=== PATIENT | female | born 1960 | race Caucasian/White ===

== ENCOUNTER → 2016-11-14 | Outpatient (CLI) | payer OTHER ==
[2013-07-20 11:10] VITALS: BP 162/96
[~2016-11-14] MED LIST: CALC500T54 PO; CYCL10TA2 PO; LEVO50TA5 PO; MULT-246 PO; NAPR500T PO
[2016-11-14 08:04] LABS: BASO # 0.1 x10^3/uL (0.0-0.2); BASO % 1 % (0-3); EOS % 3 % (0-3); HEMATOCRIT 43.2 % (36.0-47.0); HEMOGLOBIN 14.7 g/dL (12.0-15.5); LYMPH # 2.6 x10^3/uL (1.0-4.8); LYMPH % 32 % (24-48); MEAN CORPUSCULAR HEMOGLOBIN 31 pg (25-35); MEAN CORPUSCULAR HGB CONC 34 g/dL (31-37); MEAN CORPUSCULAR VOLUME 90 fL (79-100); MONO % 6 % (0-9); NEUT % 58 % (31-73); PLATELET COUNT 215 x10^3/uL (140-400); RED BLOOD COUNT 4.81 x10^6/uL (3.50-5.40); RED CELL DISTRIBUTION WIDTH 13.2 % (11.5-14.5)
[2016-11-14 08:31] LABS: ALBUMIN 4.1 g/dL (3.4-5.0); ALBUMIN/GLOBULIN RATIO 1.1 (1.0-1.7); CALCIUM 9.5 mg/dL (8.5-10.1); CREATININE 1.1 mg/dL (0.6-1.0); TOTAL BILIRUBIN 0.5 mg/dL (0.2-1.0); TOTAL PROTEIN 7.7 g/dL (6.4-8.2)
[2016-11-14 08:36] LABS: CHOLESTEROL/HDL RATIO 3.5
== END | disposition home or self-care (01) ==
LOC: LAB 07:32
PROVIDERS: ATTEND Nurse Practitioner Family
DX: Z00.01 Encounter for general adult medical examination with abnormal findings (principal); Z13.220 Encounter for screening for lipoid disorders; E03.9 Hypothyroidism, unspecified; R53.83 Other fatigue
CPT/HCPCS: 36415; 80053; 80061; 84443; 84480; 85027; 86617; 86618

== ENCOUNTER → 2017-02-17 | Outpatient (CLI) | payer OTHER ==
[2017-02-06 13:30] VITALS: BP 163/97
--- NOTE | 2017-02-17 12:17 | KCIC ---
MR of the left knee Indication: Left knee pain after hearing a pop while walking 10 days ago. Instability. Technique: The standard multiplanar sequences are obtained. Findings: Medial meniscus: Degenerative tear at the posterior root. There is medial subluxation of the meniscus. Lateral meniscus: Signal within the anterior horn, without definite tear. Anterior cruciate ligament: Intact Posterior cruciate ligament: Intact Medial collateral ligament: Intact. Iliotibial band: Intact. Posterolateral structures: Fibular collateral ligament, biceps tendon and popliteus tendon are intact. Extensor mechanism: Intact. Fluid: Small joint effusion. Articular cartilage -patellofemoral joint: Severe chondromalacia with small subchondral cysts. -medial compartment: Moderate to severe chondromalacia. -lateral compartment: Mild chondromalacia. Bones: No significant lesion or acute fracture. Soft tissue: Tiny Eubanks's cyst. Impression: 1. Medial meniscal tear. 2. Primary osteoarthritis. Electronically signed by: Marcos Shelton MD (02/17/2017 12:14 PM) [facility]-KC[facility]2
== END | disposition home or self-care (01) ==
LOC: KCIC MRI 10:44
PROVIDERS: ATTEND Orthopaedic Surgery Sports Medicine
DX: S83.207A Unspecified tear of unspecified meniscus, current injury, left knee, initial encounter (principal); M17.12 Unilateral primary osteoarthritis, left knee
CPT/HCPCS: 73721

== ENCOUNTER → 2017-03-10 | Outpatient (CLI) | payer OTHER ==
[2017-02-06 13:30] VITALS: BP 163/97
[~2017-03-10] MED LIST changes: +ACYC800T PO; +NAPR-683 PO; -NAPR500T PO
--- NOTE | 2017-03-10 20:49 | PAIN ---
DATE OF SERVICE: 03/10/2017 INITIAL CONSULTATION FOR PAIN CLINIC CHIEF COMPLAINT: Left knee pain. HISTORY OF PRESENT ILLNESS: This is a 56-year-old female who presents with history of pain in the left knee with walking, standing for about 2 months now. The patient reports it was not a result of any specific injury or accident she is aware of, but she felt a pop behind her left knee and then could not walk because of the pain. The patient reports the pain has been much worse. She has seen her orthopedic surgeon regarding and has had both medial and lateral inferior collateral ligament bursa injected without significant improvement. The patient reports neither of these had helped. She did have some x-rays, plain films of her knees, but no MRI, showing no bony abnormalities with mild patellofemoral degenerative change on the left with similar findings on the right knee as well. The patient reports she thought she had a Eubanks cyst since the pain was significant enough to her in the posterior aspect of the knee and again the right knee x-ray shows moderate joint space narrowing without spurring of the medial tibiofemoral joint compartment. No acute fractures or dislocations as well, but significant pain with walking, especially climbing stairs, putting all her weight on her left leg and her right leg and she is having to take 2 feet on each step at a time. The patient reports again much worse on the left side, worse going downstairs with weightbearing as well on the left. The patient describes the pain as sharp, stabbing, throbbing, shooting. Again, no pain radiating into the superior leg, but into the inferior aspect of the medial calf and similar is in the medial part of the foot on the left side as well. The patient rates her disability rating from 0-10, 10 being the worst; a 6 with family, home responsibilities; 8 with recreation, social activity, occupation and sexual behavior; 4 with self care and 4 with life support activities. She reports it awakens her from sleep about 2-3 times at night if she lies on her left side. She has not had any bowel or bladder control issues, but she is using a cane to walk when she is ambulating in her left hand. The patient not tried any other physical therapies at this time. She has been trying to do some stretching and walking on her own, but it has been significantly difficult to do so. She is only taking Aleve currently, which is not helping. PAST MEDICAL HISTORY: Significant for arthritis, recent shingles outbreak in the back and left hip. PREVIOUS SURGERY: Includes hysterectomy, right knee scope in 2010, right carpal tunnel repair in 2004. CURRENT MEDICATIONS: Include multivitamins, calcium, cyclobenzaprine, levothyroxine, naproxen, acyclovir and Advil glok-yne-ydnfelx. FAMILY HISTORY: Significant for arthritis. SOCIAL HISTORY: The patient does not smoke. Drinks alcohol very rarely. 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 REVIEW OF SYSTEMS: Positive for those items mentioned in history of present illness. All systems reviewed and otherwise negative. It is complete, full and well documented on the patient's chart. PHYSICAL EXAMINATION: VITAL SIGNS: Today, the patient's blood pressure is 154/90, pulse 96, respirations 18, temperature 98.2 degrees Fahrenheit, height is 5 feet 2 inches, weight is 227 pounds. GENERAL: The patient is awake, alert, oriented, appropriate, has a very pleasant demeanor. HEENT: Shows normocephalic, atraumatic. Extraocular movements are intact, symmetrical. Oral cavity shows mucous membranes moist and pink. Dentition is intact. NECK: Shows anterior throat supple without palpable lymphadenopathy noted. Swallow reflex symmetrical. CHEST: Shows normal with inspection. Breath sounds are clear to auscultation bilaterally. HEART: Shows S1, S2 clear. No murmurs auscultated. ABDOMEN: Obese, soft, nontender, nondistended. No palpable organomegaly is noted. No rebound or guarding demonstrated. MUSCULOSKELETAL: Back shows spine grossly in the midline, normal appearing thoracic kyphosis and some mild flattening of lumbar lordotic curvature. The patient has full rotational motion of the cervical spine both laterally as well as extension and flexion as well as lumbar spine both laterally and extension and flexion without pain reported. The patient's lower extremities show deep tendon reflexes at 1+ in the patellar and tendo-calcaneus tendons on the left and 2+ on the right. Motor exam is approximately 4 on a scale of 5 on the left and 5/5 on the right. The patient's peripheral pulses are 2+ posterior tibial and dorsalis pedis pulses. No peripheral edema is noted. No clubbing, no cyanosis. The patient shows good passive motion of the knee joints bilaterally on the left and the right. With weightbearing now, she has significant pain in the medial component, mostly of the left knee. With walking, she has a significant antalgic gait and limping, favoring the left lower extremity significantly and again using a cane in her right hand. IMPRESSION: 1. This is a 56-year-old female with approximately 2-month history of increasing pain, left knee, without any specific injury. 2. X-rays of the knees as noted. 3. History of arthritis. PLAN: Options were discussed with the patient including conservative medical management, physical therapy, interventional techniques. We will start with a Medrol Dosepak as well as hydrocodone for the severe pain and help with the pain at night with trying to sleep. The patient was given instruction as well as side effects to aware with each of these, also have the patient return in about 1 week for a left intraarticular knee joint injection as she has only had bursa injections at this time without significant improvement and her pain seems to be increasing. If not significantly improved, we did discuss possibility of MRI scan of the knee after that. The patient understands and wished to proceed. Will follow up as scheduled. YOVANNY RAMIREZ MD DR: ABBY/dick JOB#: [id number] / [id number]
== END | disposition home or self-care (01) ==
LOC: PNCL 10:14
PROVIDERS: ATTEND Anesthesiology
DX: M25.562 Pain in left knee (principal); Z90.710 Acquired absence of both cervix and uterus
CPT/HCPCS: 99214

== ENCOUNTER → 2017-03-18 | Outpatient (CLI) | payer OTHER ==
[2017-02-06 13:30] VITALS: BP 163/97
[~2017-03-18] MED LIST changes: +BUPIVACAINE MPF 0.25% 10 ML VIAL. ONE; +IOHEXOL 180 MG/ML 10 ML VIAL. ONE; +methylPREDNISolone ACETATE 80 MG/ML VIAL. ONE
--- NOTE | 2017-03-18 21:51 | PAIN ---
DATE OF SERVICE: 03/18/2017 DIAGNOSIS: Left knee joint pain with primary osteoarthritis, left knee. HISTORY OF PRESENT ILLNESS: The patient is a 56-year-old female who returns for a followup status post initial evaluation and scheduled for left knee joint injection today. The patient reports significant pain in the left knee, mostly with walking, standing, changing positions, bending down, stooping or climbing stairs, especially when she put all of her weight on her left leg such as steps or stairs or curbs with standing on her left leg. The patient reports pain as a 9 on a scale of 10 at its worst, 6 on average, 4 at its least and is a 5 today. The patient reports it is stabbing, aching, sharp, dull, tight, again worse with standing, walking, ambulation and weightbearing. The patient reports no new motor or sensory deficits, no new changes. The patient reports it awakens her from sleep about every 6 hours or so. She can usually reposition and is usually when she is lying on her left side. PHYSICAL EXAMINATION: VITAL SIGNS: Today, the patient's blood pressure is 182/106, pulse 90, respirations 18, temperature 98.3 degrees Fahrenheit. Weight is 229 pounds. GENERAL: The patient is awake, alert, oriented, appropriate, very pleasant demeanor. HEENT: Shows normocephalic, atraumatic. Extraocular movements are intact, symmetrical. Oral cavity shows mucous membranes are moist and pink. Dentition is intact. NECK: Shows anterior throat supple without palpable lymphadenopathy noted. Swallow reflex is symmetrical. CHEST: Shows normal with inspection. Breath sounds are clear to auscultation bilaterally. HEART: Shows S1, S2 clear. No murmurs auscultated. ABDOMEN: Soft, nontender, nondistended. MUSCULOSKELETAL: The patient's lower extremities show deep tendon reflexes at 2+ in the patellar tendons. Motor exam is strong with approximately 4 on a scale 5 with left dorsiflexion, extension, 5/5 on the right. The patient's left knee shows some moderate tenderness with palpation in the medial compartment from the medial aspect of the patella as well as the medial collateral ligaments. Good hinge motion, good range of motion both passively and actively. PLAN: Options were discussed with the patient. The patient's old chart was reviewed as her current medication regimen and updated. Current review of systems updated today as well. We will proceed with a left intraarticular knee joint injection with fluoroscopic guidance. Risks were again discussed including, but not limited to bleeding, infection, possibility of intravascular injection sequelae, spread of local anesthetic and numbness, side effects of steroid medication, exposure to fluoroscopy and poor results regarding pain control. The patient understands and wished to proceed. The patient will return to the clinic in approximately 2 weeks for a followup, was counseled to return appointment, activity level and side effects to be aware of. DIAGNOSIS: Primary osteoarthritis, left knee joint, with left knee joint pain. PROCEDURE: Left intraarticular knee joint injection using C-arm fluoroscopic guidance under sterile prep and drape using local anesthetic. MEDICATIONS INJECTED: A total of 3 mL of 0.25% bupivacaine and 80 mg of Depo-Medrol and 2 mL of Isovue for contrast. CONDITION AT DISCHARGE: Stable. The patient tolerated the procedure well, had no complications. YOVANNY RAMIREZ MD DR: ABBY/dick JOB#: [id number] / [id number]
== END | disposition home or self-care (01) ==
LOC: PNCL 10:13
PROVIDERS: ATTEND Anesthesiology
DX: M17.12 Unilateral primary osteoarthritis, left knee (principal); Z88.0 Allergy status to penicillin; Z88.1 Allergy status to other antibiotic agents; Z88.2 Allergy status to sulfonamides; Z88.8 Allergy status to other drugs, medicaments and biological substances; Z90.710 Acquired absence of both cervix and uterus; E03.9 Hypothyroidism, unspecified
CPT/HCPCS: 20610; 77002; J1040; J3490

== ENCOUNTER → 2017-04-01 | Outpatient (CLI) | payer OTHER ==
[~2017-04-01] MED LIST changes: -ACYC800T PO; +BUPIVACAINE MPF 0.25% 10 ML VIAL.; -BUPIVACAINE MPF 0.25% 10 ML VIAL. ONE; -CALC500T54 PO; -CYCL10TA2 PO; +IOHEXOL 180 MG/ML 10 ML VIAL.; -IOHEXOL 180 MG/ML 10 ML VIAL. ONE; -LEVO50TA5 PO; -MULT-246 PO; -NAPR-683 PO; +methylPREDNISolone ACETATE 80 MG/ML VIAL.; -methylPREDNISolone ACETATE 80 MG/ML VIAL. ONE
== END | disposition home or self-care (01) ==
LOC: PNCL 09:36
DX: M17.12 Unilateral primary osteoarthritis, left knee (principal); E03.9 Hypothyroidism, unspecified; Z86.69 Personal history of other diseases of the nervous system and sense organs; Z90.710 Acquired absence of both cervix and uterus; Z87.39 Personal history of other diseases of the musculoskeletal system and connective tissue; Z86.39 Personal history of other endocrine, nutritional and metabolic disease; Z88.0 Allergy status to penicillin; Z88.2 Allergy status to sulfonamides; Z88.8 Allergy status to other drugs, medicaments and biological substances
CPT/HCPCS: 20610; 77002; J1040; J3490

== ENCOUNTER → 2017-04-15 | Outpatient (CLI) | payer OTHER | END | disposition home or self-care (01) | LOC: PNCL 09:29 | DX: M17.12 Unilateral primary osteoarthritis, left knee (principal); E03.9 Hypothyroidism, unspecified; Z86.69 Personal history of other diseases of the nervous system and sense organs; Z90.710 Acquired absence of both cervix and uterus; Z87.39 Personal history of other diseases of the musculoskeletal system and connective tissue; Z88.0 Allergy status to penicillin; Z88.2 Allergy status to sulfonamides | CPT/HCPCS: 20610; 77002; J1040; J3490 ==

== ENCOUNTER → 2017-04-29 | Outpatient (CLI) | payer OTHER ==
[~2017-04-29] MED LIST changes: -BUPIVACAINE MPF 0.25% 10 ML VIAL.; -methylPREDNISolone ACETATE 80 MG/ML VIAL.
== END | disposition home or self-care (01) ==
LOC: PNCL 08:53
DX: M17.12 Unilateral primary osteoarthritis, left knee (principal); Z86.69 Personal history of other diseases of the nervous system and sense organs; Z90.710 Acquired absence of both cervix and uterus; Z87.39 Personal history of other diseases of the musculoskeletal system and connective tissue; E03.9 Hypothyroidism, unspecified; Z86.39 Personal history of other endocrine, nutritional and metabolic disease; Z88.0 Allergy status to penicillin; Z88.2 Allergy status to sulfonamides
CPT/HCPCS: 20610; 77002

== ENCOUNTER → 2017-05-07 | Outpatient (CLI) | payer OTHER ==
[~2017-05-07] MED LIST changes: +HYLAN G-F 20 16 MG/2 ML SYRINGE.
== END | disposition home or self-care (01) ==
LOC: PNCL 09:11
DX: M17.12 Unilateral primary osteoarthritis, left knee (principal); E03.9 Hypothyroidism, unspecified; Z87.39 Personal history of other diseases of the musculoskeletal system and connective tissue; Z86.69 Personal history of other diseases of the nervous system and sense organs; Z90.710 Acquired absence of both cervix and uterus; Z09 Encounter for follow-up examination after completed treatment for conditions other than malignant neoplasm; Z88.0 Allergy status to penicillin; Z88.2 Allergy status to sulfonamides
CPT/HCPCS: 20610; 77002; Q9965

== ENCOUNTER → 2017-05-14 | Outpatient (CLI) | payer OTHER ==
[2017-05-14 09:58] LABS: ANION GAP 10 (6-14); BLOOD UREA NITROGEN 8 mg/dL (7-20); CALCIUM 9.5 mg/dL (8.5-10.1); CARBON DIOXIDE 28 mmol/L (21-32); CHLORIDE 100 mmol/L (98-107); CREATININE 0.9 mg/dL (0.6-1.0); GFR 64.3; GLUCOSE 219 mg/dL (70-99); POTASSIUM 3.7 mmol/L (3.5-5.1); SODIUM 138 mmol/L (136-145)
[2017-05-15 02:18] LABS: HEMOGLOBIN A1C 7.7 % (4.8-5.6)
== END | disposition home or self-care (01) ==
LOC: LAB 09:22
DX: E03.9 Hypothyroidism, unspecified (principal); R73.01 Impaired fasting glucose
CPT/HCPCS: 36415; 80048; 83036; 84443

== ENCOUNTER → 2017-05-27 | Outpatient (CLI) | payer OTHER | END | disposition home or self-care (01) | LOC: PNCL 07:50 | DX: M17.12 Unilateral primary osteoarthritis, left knee (principal); E03.9 Hypothyroidism, unspecified; Z88.0 Allergy status to penicillin; Z86.69 Personal history of other diseases of the nervous system and sense organs; Z90.710 Acquired absence of both cervix and uterus; Z87.39 Personal history of other diseases of the musculoskeletal system and connective tissue; Z86.39 Personal history of other endocrine, nutritional and metabolic disease; Z88.2 Allergy status to sulfonamides; Z88.8 Allergy status to other drugs, medicaments and biological substances | CPT/HCPCS: 20610; 77002 ==

== ENCOUNTER → 2017-11-10 | Outpatient (CLI) | payer OTHER ==
[2017-11-10 07:55] LABS: ALBUMIN 4.2 g/dL (3.4-5.0); ALBUMIN/GLOBULIN RATIO 1.2 (1.0-1.7); ALK PHOS 89 U/L (46-116); ALT (SGPT) 22 U/L (14-59); ANION GAP 8 (6-14); AST (SGOT) 17 U/L (15-37); BLOOD UREA NITROGEN 12 mg/dL (7-20); BUN/CREATININE RATIO 12 (6-20); CALCIUM 9.8 mg/dL (8.5-10.1); CARBON DIOXIDE 25 mmol/L (21-32); CHLORIDE 105 mmol/L (98-107); GFR 56.7; GLUCOSE 120 mg/dL (70-99); POTASSIUM 4.1 mmol/L (3.5-5.1); SODIUM 138 mmol/L (136-145); TOTAL BILIRUBIN 0.4 mg/dL (0.2-1.0); TOTAL PROTEIN 7.6 g/dL (6.4-8.2)
[2017-11-11 03:16] LABS: HEMOGLOBIN A1C 4.9 % (4.8-5.6)
== END | disposition home or self-care (01) ==
LOC: LAB 07:09
DX: Z00.01 Encounter for general adult medical examination with abnormal findings (principal); Z13.1 Encounter for screening for diabetes mellitus; E03.9 Hypothyroidism, unspecified; R73.01 Impaired fasting glucose
CPT/HCPCS: 36415; 80053; 83036; 84443

== ENCOUNTER → 2018-02-12 | Outpatient (CLI) | payer OTHER ==
[2017-02-06 13:30] VITALS: BP 163/97
[~2018-02-12] MED LIST changes: +ACYC800T PO; +CALC500T54 PO; +CYCL10TA2 PO; +HYDR-2762 PO; -HYLAN G-F 20 16 MG/2 ML SYRINGE.; -IOHEXOL 180 MG/ML 10 ML VIAL.; +LEVO50TA5 PO; +MULT-246 PO; +NAPR-683 PO
--- NOTE | 2018-02-12 12:37 | KCIC ---
Bone mineral density study dated 02/12/2018. Indication: Postmenopausal screening. Findings: Lower lumbar spine: BMD (g/cm2): Total L1-L4.......... 0.941. . T-Score: Total L1-L4.................... -1.0. Z-Score: Total L1-L4 ................... 0.4. Left Hip: BMD (g/cm2): Total .......... 0.868. . T-Score: Total .................... -0.6. Z-Score: Total ................... 0.3. World Health Organization criteria for BMD interpretation classify patients as Normal (T-score at or above -1.0), Osteopenic (T-score between -1.0 and -2.5), or Osteoporotic (T-score at or below -2.5). Impression: Bone mineral density values are lower limits of normal. Electronically signed by: Marcos Nath MD (02/12/2018 12:34 PM) [facility]
--- NOTE | 2018-02-12 12:38 | KCIC ---
Two-view left hip dated 02/12/2018. No comparison available. Clinical data indication: Chronic pain. FINDINGS: 2 views left hip show normal bony alignment. No displaced fracture. No acute osseous or articular abnormality. Mild hypertrophic change at the left hip joint. No periostitis or bone destruction. Rounded area of increased density left pelvis may represent partially calcified fibroid. IMPRESSION: 1. No acute radiographic abnormality. 2. Mild left hip DJD. Electronically signed by: Marcos Nath MD (02/12/2018 12:35 PM) [facility]-KC[facility]2
== END | disposition home or self-care (01) ==
LOC: KCIC DEXA 11:18
PROVIDERS: ATTEND Nurse Practitioner Family
DX: Z13.820 Encounter for screening for osteoporosis (principal); M16.12 Unilateral primary osteoarthritis, left hip; E11.9 Type 2 diabetes mellitus without complications; G89.29 Other chronic pain; Z78.0 Asymptomatic menopausal state
CPT/HCPCS: 73502; 77080

== ENCOUNTER → 2018-02-22 | Outpatient (CLI) | payer OTHER ==
[2017-02-06 13:30] VITALS: BP 163/97
--- NOTE | 2018-02-22 11:48 | KCIC ---
MR of the left hip Indication: Chronic left hip pain, worse the last 2 months. Osteoarthritis.. Technique: Standard multiplanar sequences are obtained. FINDINGS: Artifact: No significant image degradation. Bones: Subchondral lesion at the superior left femoral head, compatible with a small focus of osteonecrosis. No acute marrow edema. No subchondral bone collapse. Effusion: No significant effusion Joint: No advanced primary osteoarthritis. Labrum: No evidence of labral tear or para labral cyst Gluteus minimus tendon: Intact Gluteus medius tendon: Intact Hamstring tendon: Mild tendinosis. Iliopsoas tendon: Intact Rectus femoris tendon attachment:Intact Soft tissue:No significant acute findings. Coronal STIR survey sequence inclusive of the contralateral hip demonstrates subchondral marrow change at the right femoral head, with adjacent marrow edema, suspicious for right femoral head osteonecrosis with an acute component. IMPRESSION: 1. 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 2. Limited visualization of the right femoral head, also suggests femoral head osteonecrosis with acute edema. Electronically signed by: Marcos Shelton MD (02/22/2018 11:44 AM) [facility]-KC[facility]
== END | disposition home or self-care (01) ==
LOC: KCIC MRI 09:11
PROVIDERS: ATTEND Nurse Practitioner Family
DX: M25.552 Pain in left hip (principal); G89.29 Other chronic pain
CPT/HCPCS: 73721

== ENCOUNTER → 2018-07-13 | Outpatient (CLI) | payer OTHER ==
[2017-02-06 13:30] VITALS: BP 163/97
[~2018-07-13] MED LIST changes: -HYDR-2762 PO; +HYDR-2765 PO
[2018-07-13 08:15] LABS: BASO # 0.1 x10^3/uL (0.0-0.2); BASO % 1 % (0-3); EOS # 0.2 x10^3/uL (0.0-0.7); EOS % 3 % (0-3); HEMATOCRIT 41.1 % (36.0-47.0); LYMPH # 2.7 x10^3/uL (1.0-4.8); LYMPH % 37 % (24-48); MEAN CORPUSCULAR HEMOGLOBIN 30 pg (25-35); MEAN CORPUSCULAR HGB CONC 34 g/dL (31-37); MEAN CORPUSCULAR VOLUME 88 fL (79-100); MONO # 0.5 x10^3/uL (0.0-1.1); MONO % 6 % (0-9); NEUT # 3.9 x10^3uL (1.8-7.7); NEUT % 53 % (31-73); PLATELET COUNT 240 x10^3/uL (140-400); RED BLOOD COUNT 4.66 x10^6/uL (3.50-5.40); RED CELL DISTRIBUTION WIDTH 14.8 % (11.5-14.5); WHITE BLOOD COUNT 7.4 x10^3/uL (4.0-11.0)
[2018-07-13 08:28] LABS: ALBUMIN 4.1 g/dL (3.4-5.0); ALBUMIN/GLOBULIN RATIO 1.2 (1.0-1.7); CALCIUM 8.9 mg/dL (8.5-10.1); CREATININE 1.1 mg/dL (0.6-1.0); GFR 50.7; POTASSIUM 4.4 mmol/L (3.5-5.1); TOTAL BILIRUBIN 0.4 mg/dL (0.2-1.0); TOTAL PROTEIN 7.4 g/dL (6.4-8.2)
[2018-07-13 08:29] LABS: CHOLESTEROL/HDL RATIO 2.7
[2018-07-13 08:40] LABS: FREE T4 0.98 ng/dL (0.76-1.46); THYROID STIM HORMONE (TSH) 2.18 uIU/mL (0.358-3.74)
[2018-07-13 23:08] LABS: HEMOGLOBIN A1C 5.4 % (4.8-5.6)
== END | disposition home or self-care (01) ==
LOC: LAB 07:44
PROVIDERS: ATTEND Family Medicine
DX: I10 Essential (primary) hypertension (principal); E11.9 Type 2 diabetes mellitus without complications; E03.9 Hypothyroidism, unspecified
CPT/HCPCS: 36415; 80053; 80061; 83036; 84439; 84443; 85025

== ENCOUNTER → 2018-08-20 | Outpatient (CLI) | payer OTHER ==
[2017-02-06 13:30] VITALS: BP 163/97
[2018-08-20 17:09] LABS: RHEUMATOID FACTOR 10.4 IU/mL (0.0-13.9)
[2018-08-23 21:10] LABS: ANA INTERP Negative (.)
== END | disposition home or self-care (01) ==
LOC: LAB 07:34
PROVIDERS: ATTEND Family Medicine
DX: Z13.9 Encounter for screening, unspecified (principal); M87.9 Osteonecrosis, unspecified
CPT/HCPCS: 36415; 82306; 82652; 85651; 86038; 86431

== ENCOUNTER → 2018-09-30 | Outpatient (CLI) | payer OTHER ==
[2017-02-06 13:30] VITALS: BP 163/97
--- NOTE | 2018-09-30 16:35 | KCIC ---
MRI of the cervical spine without contrast 09/30/2018 CLINICAL HISTORY: Neck pain which radiates down both arms for 6 months. TECHNIQUE: Unenhanced T1-weighted, T2-weighted and inversion recovery sagittal and gradient echo and T2-weighted axial images of the cervical spine were obtained. FINDINGS: Comparison study is dated 11/06/2006. Mild lateral curvature of the cervical spine is seen convex to the left. There is straightening of the normal cervical lordosis. Degenerative signal changes are seen involving all of the disks of the cervical spine. Loss of height of the C4-5 and C5-6 discs is noted. Degenerative signal changes are seen within the marrow surrounding these discs. No area of abnormal signal intensity is seen involving the cervical spinal cord. At the C2-3 and C3-4 disc spaces there are minimal to mild generalized disc bulges. Degenerative changes are seen involving the uncovertebral and facet joints bilaterally. These findings do not result in significant central spinal canal or neural foraminal stenosis. At the C4-5 disc space there is a mild generalized disc bulge. This is eccentric to the right. Degenerative changes are seen involving the uncovertebral and facet joints bilaterally. These findings do not result in significant central spinal canal or neural foraminal stenosis. At the C5-6 disc space there is a mild generalized disc bulge. Degenerative changes are seen involving the uncovertebral and facet joints, right greater than left. These findings when combined do not result in significant central spinal canal or neural foraminal stenosis. At the C6-7 disc space there is a mild generalized disc bulge. Degenerative changes are seen involving the uncovertebral and facet joints bilaterally. These findings do not result in significant central spinal canal or neural foraminal stenosis. At the C7-T1 disc space there is a mild generalized disc bulge. Degenerative changes are seen involving the facet joints bilaterally. There is mild ligamentum flavum hypertrophy bilaterally. These findings when combined do not result in significant central spinal canal or neural foraminal stenosis. IMPRESSION: Degenerative changes are seen throughout the cervical spine. These findings do not result in significant central spinal canal or neural foraminal stenosis at any level. Electronically signed by: Mde Frias MD (09/30/2018 4:32 PM) [facility]-KC[facility]1
== END | disposition home or self-care (01) ==
LOC: KCIC MRI 15:09
PROVIDERS: ATTEND Nurse Practitioner Family
DX: M47.26 Other spondylosis with radiculopathy, lumbar region (principal); M50.11 Cervical disc disorder with radiculopathy, high cervical region; M51.24 Other intervertebral disc displacement, thoracic region; M47.814 Spondylosis without myelopathy or radiculopathy, thoracic region
CPT/HCPCS: 72141

== ENCOUNTER → 2018-10-29 | Outpatient (CLI) | payer OTHER ==
[2017-02-06 13:30] VITALS: BP 163/97
[~2018-10-29] MED LIST changes: +IOHEXOL 180 MG/ML 10 ML VIAL. ONE; +LISI10TA2 PO; +methylPREDNISolone ACETATE 40 MG/ML VIAL. ONE; +methylPREDNISolone ACETATE 80 MG/ML VIAL. ONE
--- NOTE | 2018-10-29 10:49 | PAIN ---
DATE OF SERVICE: 10/29/2018 PROGRESS NOTE FOR PAIN CLINIC DIAGNOSES: 1. Cervical radiculopathy with cervical degenerative disk disease. 2. Left knee joint pain with primary osteoarthritis. HISTORY OF PRESENT ILLNESS: The patient is a 58-year-old female who returns for followup status post left knee joint injections, last seen in 05/2017. She did very well with these. She recently has been having over the past 4-5 months and over the past 2 months especially increased pain at the base of the neck and shoulders, worse on the left than the right, but present bilaterally with radiation in the upper extremities, aching, dull, sharp, shooting, tight, severe, becoming unbearable, worse with activity, difficulty with raising her arms overhead, reaching her arm to the side, especially on the left side, any weightbearing and she is losing some fine motor function. The patient reports she has been dropping items of the left hand primarily, rates her pain as a 10 on a scale of 10 at its worst, 8 on average, 6 at its least in the past week and is an 8 today. The patient reports no new motor or sensory deficit. She did have an MRI scan of the cervical spine showing significant degenerative changes at C5-C6, C6-C7, C7-T1 levels, but without significant central stenosis. The patient reports no full loss of motor function, but significant fatigability of the upper extremities and difficulty sleeping and wakes her about every 2 hours at night from sleep. PHYSICAL EXAMINATION: VITAL SIGNS: The blood pressure 129/80, pulse 91, respirations 18, temperature 96.7 degrees Fahrenheit, height is 5 feet 2 inches, weight is 192 pounds. GENERAL: The patient is awake, alert, oriented, appropriate, very pleasant demeanor. HEENT: Head shows normocephalic, atraumatic. Extraocular movements are intact and symmetrical. Oral cavity: Mucous membranes are moist and pink. Dentition is intact. NECK: Shows anterior throat supple without palpable lymphadenopathy noted. Swallow reflex symmetrical. CHEST: Shows normal with inspection. Breath sounds clear to auscultation bilaterally. HEART: Shows S1, S2 clear. No murmurs auscultated. ABDOMEN: Soft, nontender, nondistended. No palpable organomegaly is noted. No rebound or guarding demonstrated. BACK: Shows spine grossly in the midline. Cervical paraspinous muscle shows symmetrical on inspection, on palpation shows some moderate tenderness diffusely bilaterally, but only diffusely without radiation. The patient has good rotational motion of the cervical spine, both laterally greater than 45 degrees as well as full extension, full forward flexion without significant increase in pain. EXTREMITIES: The patient's upper extremities show deep tendon reflexes at 2+ in the biceps, triceps tendons. Motor exam is approximately 4 on a scale of 5 with left tankage grinder, biceps and triceps flexion and 5/5 on the right. Peripheral pulses are 2+ radial distribution. No peripheral edema is noted bilaterally. Options were discussed with the patient. The patient's old chart was reviewed as her current medication regimen updated. Current review of systems updated today as well. We will proceed with a cervical epidural steroid injection today with fluoroscopic guidance. Risks were again discussed including, but not limited to bleeding, infection, possibility of epidural hematoma, subsequent neurological compromise, dural puncture, headaches, spinal cord and/or nerve damage, side effects of steroid medication and poor results regarding pain control. The patient understands and wished to proceed. The patient will return to clinic in approximately 2 weeks for followup. She was counseled on return appointment, activity level and side effects to be aware of. DIAGNOSES: Cervical radiculopathy with cervical degenerative disk disease. PROCEDURE: Cervical epidural steroid injection, translaminar approach C6-C7 level to C-arm fluoroscopic guidance under sterile prep and drape using local anesthetic. MEDICATION INJECTED: A total of 120 mg Depo-Medrol plus 5 mL of preservative-free normal saline and 2 mL of contrast. CONDITION AT DISCHARGE: Stable. The patient tolerated procedure well, had no complications. YOVANNY RAMIREZ MD DR: ABBY/dick JOB#: [id number] / [id number]
== END ==
LOC: PNCL 07:22
PROVIDERS: ATTEND Anesthesiology
DX: M50.123 Cervical disc disorder at C6-C7 level with radiculopathy (principal); M17.12 Unilateral primary osteoarthritis, left knee
CPT/HCPCS: 62321; J1030; J1040; Q9965

== ENCOUNTER → 2018-12-02 | Outpatient (CLI) | payer OTHER ==
[2017-02-06 13:30] VITALS: BP 163/97
--- NOTE | 2018-12-03 07:42 | PN ---
DATE: 12/02/2018 DIAGNOSIS: Cervical radiculopathy with cervical degenerative disk disease. HISTORY OF PRESENT ILLNESS: The patient is a 58-year-old female who returns for followup status post cervical epidural steroid injection x 1, last seen on 10/29/2018, the patient did very well with about 40% improvement, still some pain in the base of the neck and left greater than right upper extremities. The patient reports she was increasing her activity with greater ease and comfort; however, lifting items with much greater ease during work and home activities as well as traveling activities with better ease. She has had her hip replaced since her last visit and is doing quite well with that, still working through some rehab with the hip. The patient reports otherwise the pain in the neck and shoulders. It is increasing radiating to both upper extremities, left greater than right, but in the posterior biceps, posterior triceps, forearms, and into the hand and fingers, especially on the left side. The patient reports it is aching, dull, tight, shooting, tingling, burning at times and becoming more constant. The patient reports it awakens her from sleep occasionally, but not every night. The patient reports the pain is a 9 on a scale of 10 at its worst in the past week 5-6 on average, 4 at its least and is a 5 today. The patient reports no new motor or sensory deficits, no new bowel or bladder incontinence or other complaints. PHYSICAL EXAMINATION: VITAL SIGNS: The patient's blood pressure is 158/81, pulse 99, respirations 18, temperature 98.4 degrees Fahrenheit, height is 5 feet 2 inches and weight is 205 pounds. GENERAL: The patient is awake, alert, oriented, appropriate, very pleasant demeanor. HEENT: Shows normocephalic, atraumatic. Extraocular movements are intact and symmetrical. Oral cavity, mucous membranes are moist and pink. Dentition is intact. NECK: Shows anterior throat supple without palpable lymphadenopathy noted. Swallow reflex symmetrical. CHEST: Shows normal on inspection. Breath sounds clear to auscultation bilaterally. HEART: Shows S1, S2 clear. No murmurs auscultated. ABDOMEN: Soft, nontender, nondistended. No palpable organomegaly is noted. No rebound or guarding demonstrated. BACK: Shows spine grossly in the midline, normal-appearing cervical lordotic curvature and thoracic kyphotic curvature. Cervical paraspinous muscle shows symmetrical on inspection, with palpation, shows some moderate tenderness diffusely bilaterally, but only in the inferior aspect of the cervical paraspinous muscles without radiation. The patient has good rotational motion of cervical spine. No significant trigger points or radiation demonstrated. EXTREMITIES: Upper extremities show deep tendon reflexes 2+ in the biceps, triceps tendons. Motor exam is approximately 4 on a scale of 5 on the left with shorthand reporter strength, bicep and tricep flexion and 5/5 on the right. Peripheral pulses are 2+ radial distribution. No peripheral edema is noted bilaterally. Options were discussed with the patient. The patient's old chart was reviewed as her current medication regimen updated. Current review of systems updated today as well. We will proceed with a cervical epidural steroid injection, today is the second in the series with fluoroscopic guidance today. Risks were again discussed including, but not limited to bleeding, infection, possibility of epidural hematoma, subsequent neurological compromise, dural puncture, headaches, spinal cord and/or nerve damage, side effects of steroid medication and poor results regarding pain control. The patient understands and wished to proceed. The patient will return to clinic in approximately 2 weeks for followup. She was counseled on return appointment, activity level and side effects to be aware of. DIAGNOSES: Cervical radiculopathy with cervical degenerative disk disease. PROCEDURE: Cervical epidural steroid injection, translaminar approach C6-C7 level using C-arm fluoroscopic guidance under sterile prep and drape using local anesthetic. MEDICATION INJECTED: The patient received a total of 120 mg Depo-Medrol plus 5 mL of preservative-free normal saline and 2 mL of contrast. CONDITION AT DISCHARGE: Stable. The patient tolerated the procedure well, had no complications. YOVANNY RAMIREZ MD DR: ABBY/dick JOB#: [id number] / [id number]
== END ==
LOC: PNCL 10:56
PROVIDERS: ATTEND Anesthesiology
DX: M50.123 Cervical disc disorder at C6-C7 level with radiculopathy (principal)
CPT/HCPCS: 62321; J1030; J1040; Q9965

== ENCOUNTER → 2019-02-14 | Outpatient (CLI) | payer OTHER ==
[2017-02-06 13:30] VITALS: BP 163/97
[~2019-02-14] MED LIST changes: -IOHEXOL 180 MG/ML 10 ML VIAL. ONE; -methylPREDNISolone ACETATE 40 MG/ML VIAL. ONE; -methylPREDNISolone ACETATE 80 MG/ML VIAL. ONE
--- NOTE | 2019-02-14 13:41 | KCIC ---
MRI Cervical Spine Without Contrast History: Cervical radiculopathy, progressive bilateral upper extremity numbness greater in the hands Technique: Multiplanar, multi sequential noncontrast MR imaging was performed of the cervical spine. Comparison: September 30, 2018 Findings: There is some motion degradation. Cervical cord caliber is within normal limits without defined or expansile signal abnormality. Cervical vertebral body stature is maintained. There is very minimal grade 1 anterior spondylolisthesis C3-C4, negligible anterior spondylolisthesis C4-5. There is moderate to severe degenerative disc disease C5-6 and to a lesser degree at C4-C5, mild disc desiccation at other levels. There is no significant marrow edema. Appearance of increased STIR signal of the gayle may be artifactual as not as well visualized on the T2 sequence. There is somewhat complex Thornwaldt cyst about 0.8 cm. C2-C3: Neural foramina and spinal canal are adequate. C3-C4: Neural foramina and spinal canal are adequate. C4-C5: There is disc osteophyte complex, superimposed very shallow more central protrusion, central canal borderline about 10 mm. There is mild uncovertebral degenerative change. Neural foramina are not significantly narrowed. C5-C6: There is minimal disc osteophyte complex. Central canal is adequate about 11 mm. There is uncovertebral degenerative change. There is very mild neural foramina compromise bilaterally. C6-C7: Spinal canal and neural foramina are adequate. C7-T1: Spinal canal and neural foramina are adequate. Impression: 1. There is no significant cervical spinal stenosis. There is degenerative disc disease greatest at C5-6 and to lesser degree C4-5, mild spondylosis. There is very mild neural foramina compromise bilaterally at C5-C6 due to uncovertebral degenerative change. Electronically signed by: Marcelino Reardon MD (02/14/2019 1:38 PM) [id number]
== END | disposition home or self-care (01) ==
LOC: KCIC MRI 08:24
PROVIDERS: ATTEND Family Medicine
DX: M43.12 Spondylolisthesis, cervical region (principal); M50.11 Cervical disc disorder with radiculopathy, high cervical region; M47.22 Other spondylosis with radiculopathy, cervical region; M25.78 Osteophyte, vertebrae
CPT/HCPCS: 72141

== ENCOUNTER → 2019-02-22 | Outpatient (CLI) | payer OTHER ==
[2017-02-06 13:30] VITALS: BP 163/97
[~2019-02-22] MED LIST changes: +IOHEXOL 180 MG/ML 10 ML VIAL. ONE; +TRAM50TA PO; +methylPREDNISolone ACETATE 40 MG/ML VIAL. ONE; +methylPREDNISolone ACETATE 80 MG/ML VIAL. ONE
--- NOTE | 2019-02-22 10:10 | PAIN ---
DATE OF SERVICE: 02/22/2019 PROGRESS NOTE FOR PAIN CLINIC DIAGNOSES: Cervical radiculopathy with cervical degenerative disk disease. HISTORY OF PRESENT ILLNESS: The patient is a 58-year-old female who returns for followup status post cervical epidural steroid injection x 2, last on 12/02/2018. The patient did well with about 30% improvement overall in the base of the neck and shoulders, there were also some tingling and numbness in the hands, especially on the right side. The patient reports that 10 on a scale of 10 at its worst over the past week, 7 on average, 7 at its least and is a 7 today. The patient reports it is aching, dull, tight, shooting in the arm, tingling in the hands as well, both hands, worse on the right. The patient reports unbearable at times, worse with activity, lifting items with weightbearing, reaching overhead with either of her hands, awakes her from sleep about every 4 hours or so, but over the last month or so, has been getting worse. The patient did have a new MRI scan, which we reviewed with her showing at C4-C5 and C5-C6, disk osteophyte complex with a superimposed very shallow more central protrusion at C4-C5 and C5-C6 shows a very mild neural foraminal compromise bilaterally. The patient reports no new motor or sensory deficits, no new changes. PHYSICAL EXAMINATION: VITAL SIGNS: The patient's blood pressure is 163/94, pulse 107, respirations are 16, temperature 98.4 degrees Fahrenheit, weight is 225 pounds. GENERAL: The patient is awake, alert, oriented, appropriate, very pleasant demeanor. HEENT: Shows normocephalic, atraumatic. Extraocular movements are intact and symmetrical. Oral cavity: Mucous membranes moist and pink. Dentition is intact. NECK: Shows anterior throat supple without palpable lymphadenopathy noted. Swallow reflex symmetrical. CHEST: Shows normal on inspection. Breath sounds clear to auscultation bilaterally. HEART: Shows S1, S2 clear. No murmurs auscultated. ABDOMEN: Soft, nontender, nondistended. No palpable organomegaly is noted. No rebound or guarding demonstrated. BACK: Shows spine grossly in the midline. Cervical paraspinous muscle shows symmetrical on inspection, with normal-appearing cervical lordotic curvature with palpation shows some moderate tenderness diffusely in the inferior aspect of the cervical paraspinous muscles, but only diffusely without significant radiation, without atrophy and hypertrophy, without asymmetry. The patient has good rotational motion of cervical spine, both laterally as well as extension and flexion without significant difficulty. EXTREMITIES: The patient's upper extremities show deep tendon reflexes at 2+ in the biceps and triceps tendons. Motor exam is approximately 4 on a scale of 5 on left and 5/5 on the right with gas turbine powerplant mechanic helper strength, bicep and tricep flexion of 5/5 and equal. Peripheral pulses are 2+ radial. No peripheral edema is noted. Options were discussed with the patient. The patient's old chart was reviewed as was her current medication regimen updated. Current review of systems updated today as well. We will proceed with a cervical epidural steroid injection, 3rd in the series with fluoroscopic guidance. Risks were again discussed including, but not limited to bleeding, infection, possibility of epidural hematoma, subsequent neurological compromise, dural puncture, headaches, spinal cord and/or nerve damage, side effects of steroid medication and poor results regarding pain control. The patient understands and wished to proceed. The patient will return to clinic in approximately 2 weeks for followup. She was counseled as to return appointment, activity level and side effects to be aware. DIAGNOSES: Cervical radiculopathy with cervical degenerative disk disease. PROCEDURE: Cervical epidural steroid injection, translaminar approach C6-C7 level using C-arm fluoroscopic guidance under sterile prep and drape using local anesthetic. MEDICATION INJECTED: A total of 120 mg Depo-Medrol plus 5 mL of preservative-free normal saline and 2 mL of contrast. CONDITION AT DISCHARGE: Stable. The patient tolerated procedure well, had no complications. YOVANNY RAMIREZ MD DR: ABBY/dick JOB#: [id number] / [id number]
== END ==
LOC: PNCL 08:22
PROVIDERS: ATTEND Anesthesiology
DX: M50.123 Cervical disc disorder at C6-C7 level with radiculopathy (principal)
CPT/HCPCS: 62321; J1030; J1040; Q9965

== ENCOUNTER → 2019-02-24 | Outpatient (CLI) | payer OTHER ==
[2017-02-06 13:30] VITALS: BP 163/97
[~2019-02-24] MED LIST changes: -IOHEXOL 180 MG/ML 10 ML VIAL. ONE; -methylPREDNISolone ACETATE 40 MG/ML VIAL. ONE; -methylPREDNISolone ACETATE 80 MG/ML VIAL. ONE
[2019-02-24 09:13] LABS: BASO # 0.1 x10^3/uL (0.0-0.2); BASO % 0 % (0-3); EOS % 0 % (0-3); HEMATOCRIT 36.7 % (36.0-47.0); HEMOGLOBIN 12.1 g/dL (12.0-15.5); LYMPH # 1.9 x10^3/uL (1.0-4.8); LYMPH % 16 % (24-48); MEAN CORPUSCULAR HEMOGLOBIN 28 pg (25-35); MEAN CORPUSCULAR HGB CONC 33 g/dL (31-37); MEAN CORPUSCULAR VOLUME 85 fL (79-100); MONO # 0.6 x10^3/uL (0.0-1.1); MONO % 5 % (0-9); NEUT # 9.7 x10^3/uL (1.8-7.7); NEUT % 79 % (31-73); PLATELET COUNT 274 x10^3/uL (140-400); RED BLOOD COUNT 4.34 x10^6/uL (3.50-5.40); RED CELL DISTRIBUTION WIDTH 13.9 % (11.5-14.5); WHITE BLOOD COUNT 12.3 x10^3/uL (4.0-11.0)
== END | disposition home or self-care (01) ==
LOC: LAB 08:30
PROVIDERS: ATTEND Family Medicine
DX: R53.83 Other fatigue (principal)
CPT/HCPCS: 36415; 83540; 85025

== ENCOUNTER → 2019-05-26 | Outpatient (CLI) | payer OTHER ==
[2019-01-15 18:12] VITALS: BP 138/64
[2019-05-26 08:33] LABS: ALBUMIN 3.7 g/dL (3.4-5.0); C-REACTIVE PROTEIN 7.1 mg/L (0-3.3); CALCIUM 9.3 mg/dL (8.5-10.1); CREATININE 0.9 mg/dL (0.6-1.0); GFR 63.9; POTASSIUM 4.1 mmol/L (3.5-5.1); TOTAL BILIRUBIN 0.3 mg/dL (0.2-1.0); TOTAL PROTEIN 7.3 g/dL (6.4-8.2)
[2019-05-26 08:36] LABS: CHOLESTEROL/HDL RATIO 3.8
[2019-05-26 08:44] LABS: FREE T4 1.02 ng/dL (0.76-1.46); THYROID STIM HORMONE (TSH) 6.946 uIU/mL (0.358-3.74)
[2019-05-26 08:54] LABS: BASO # 0.1 x10^3/uL (0.0-0.2); BASO % 1 % (0-3); EOS # 0.2 x10^3/uL (0.0-0.7); EOS % 3 % (0-3); HEMATOCRIT 40.2 % (36.0-47.0); HEMOGLOBIN 13.4 g/dL (12.0-15.5); LYMPH # 2.8 x10^3/uL (1.0-4.8); LYMPH % 37 % (24-48); MEAN CORPUSCULAR HEMOGLOBIN 29 pg (25-35); MEAN CORPUSCULAR HGB CONC 33 g/dL (31-37); MEAN CORPUSCULAR VOLUME 86 fL (79-100); MONO # 0.4 x10^3/uL (0.0-1.1); MONO % 6 % (0-9); NEUT % 53 % (31-73); PLATELET COUNT 259 x10^3/uL (140-400); RED BLOOD COUNT 4.69 x10^6/uL (3.50-5.40); RED CELL DISTRIBUTION WIDTH 15.2 % (11.5-14.5); WHITE BLOOD COUNT 7.5 x10^3/uL (4.0-11.0)
[2019-05-26 19:09] LABS: CREAT RD UR 51.5 mg/dL (Not Estab.); MICROALB RD UR 5.4 ug/mL (Not Estab.)
[2019-05-27 00:07] LABS: HEMOGLOBIN A1C 6.7 % (4.8-5.6)
== END | disposition home or self-care (01) ==
LOC: LAB 07:26
PROVIDERS: ATTEND Family Medicine
DX: M25.551 Pain in right hip (principal); E11.9 Type 2 diabetes mellitus without complications; I10 Essential (primary) hypertension; E03.9 Hypothyroidism, unspecified
CPT/HCPCS: 36415; 80053; 80061; 82043; 82570; 83036; 84439; 84443; 85025; 85651; 86140

== ENCOUNTER → 2019-06-06 | Outpatient (CLI) | payer OTHER ==
[2019-01-15 18:12] VITALS: BP 138/64
[~2019-06-06] MED LIST changes: +IOHEXOL 300 MG/ML 50 ML VIAL. IT ONE; +LIDOCAINE 1% Multi-Dose 20 ML VIAL. ID ONE
--- NOTE | 2019-06-06 14:14 | KCIC ---
Cervical spine CT without contrast History: Cervical radiculopathy, pain and numbness into both arms Technique: CT imaging was performed of the cervical spine after injection for myelogram. Multiplanar images are reviewed. Exposure: One or more of the following individualized dose reduction techniques were utilized for this examination: 1. Automated exposure control 2. Adjustment of the mA and/or kV according to patient size 3. Use of iterative reconstruction technique. Comparison: February 14, 2019 MRI cervical spine exam Findings: Cervical cord caliber is within normal limits. Cervical vertebral body stature is maintained. There is negligible anterior spondylolisthesis at C7-T1. There is straightening of the cervical spine. There is moderate to severe degenerative disc disease at C5-C6, mild to moderate degenerative disc disease at C4-5 and minimally at C3-4 and C7-T1. No cervical spine acute fracture is identified. Vertebral body stature is preserved. AP is alignment is within normal limits. Atlanto-axial distance is within normal limits, mild associated degenerative change. There is appropriate alignment of lateral masses of C1 relative to C2. Occipital condylar-C1 relationship is maintained. There is very mild levoscoliosis of the cervical spine. C2-C3: Neural foramina and spinal canal are adequate. C3-4: There is very minimal disc osteophyte complex centrally, central canal adequate about 11 mm. Neural foramina are adequate. There is minimal left uncovertebral degenerative change. There is mild right facet degenerative change. C4-C5: There is minimal disc osteophyte complex, central canal adequate about 13 mm. There is mild bilateral facet degenerative change. There is uncovertebral degenerative change bilaterally. There is mild narrowing of the left neural foramen, right neural foramen overall adequate. C5-C6: There is minimal disc osteophyte complex. Central canal is borderline about 10 mm. There is facet degenerative change bilaterally, also left uncovertebral degenerative change. There is left greater than right, moderate to severe neural foramina compromise bilaterally primarily due to uncovertebral degenerative change. C6-7: Spinal canal and neural foramina are adequate. C7-T1: Neural foramina and spinal canal are adequate. There is bilateral facet degenerative change. Impression: 1. There is degenerative disc disease greatest at C5-6. There is spondylosis greatest C4-5 to C6-7. There is no significant cervical spinal stenosis, borderline narrowing at C5-6. There is moderate to severe neural foramina compromise bilaterally at C5-6 primarily due to uncovertebral degenerative change. Electronically signed by: Marcelino Reardon MD (06/06/2019 2:11 PM) [id number]
--- NOTE | 2019-06-06 14:17 | KCIC ---
Cervical myelogram History: Cervical radiculopathy, pain and numbness into both arms Technique: Patient was informed of the risks to include pain, infection, bleeding, seizures, allergic reaction, nerve root injury. All questions were answered. Patient signed a written consent form for a cervical myelogram. The patient was placed in a prone oblique position. The patient was prepped and draped in the usual sterile fashion. 1% lidocaine was utilized for local anesthesia at the anticipated site of puncture of the right L3-4 interlaminar space. A 19-gauge guiding needle was advanced into the soft tissues. Through the guiding needle, a 25 gauge Bijal needle was advanced until there was return of cerebral spinal fluid. Approximately 10 cc [id number]-300 were then injected during fluoroscopic visualization. The needles were removed. Patient was repositioned so as to allow for the flow of contrast into the cervical spine. The patient was then transferred to the CT department for CT examination of the cervical spine. There were no immediate complications. Fluoroscopy time: 35 seconds, 6 images Findings: There is no evidence of myelographic block. Accurate evaluation of the mid to inferior cervical spine is limited on lateral views due to overlying bone and soft tissues. There is multilevel uncovertebral degenerative change. There is degenerative disc disease likely greatest at C5-6 although poorly evaluated on the lateral views. Impression: 1. There is no evidence of myelographic block. There is degenerative disc disease likely greatest at C5-6. Electronically signed by: Marcelino Reardon MD (06/06/2019 2:14 PM) [id number]
== END | disposition home or self-care (01) ==
LOC: KCIC 09:38
PROVIDERS: ATTEND Neurological Surgery
DX: M47.22 Other spondylosis with radiculopathy, cervical region (principal); M50.11 Cervical disc disorder with radiculopathy, high cervical region; M43.13 Spondylolisthesis, cervicothoracic region; M51.34 Other intervertebral disc degeneration, thoracic region; M25.78 Osteophyte, vertebrae
CPT/HCPCS: 72126; 72240; J3490; Q9967

== ENCOUNTER → 2019-06-29 | Outpatient (CLI) | payer OTHER ==
[2019-01-15 18:12] VITALS: BP 138/64
[~2019-06-29] MED LIST changes: -IOHEXOL 300 MG/ML 50 ML VIAL. IT ONE; -LIDOCAINE 1% Multi-Dose 20 ML VIAL. ID ONE
[2019-06-30 21:07] LABS: CYCLIC CITRULLIN PEP AB 6 units (0-19)
[2019-07-01 17:09] LABS: ANA INTERP Positive (.)
== END | disposition home or self-care (01) ==
LOC: LAB 07:50
PROVIDERS: ATTEND Family Medicine
DX: M79.601 Pain in right arm (principal); E11.9 Type 2 diabetes mellitus without complications; M25.50 Pain in unspecified joint
CPT/HCPCS: 36415; 82024; 82533; 82607; 85651; 86038; 86140; 86200

== ENCOUNTER → 2019-07-06 | Outpatient (CLI) | payer OTHER ==
[2019-01-15 18:12] VITALS: BP 138/64
--- NOTE | 2019-07-06 11:16 | KCIC ---
3 views left shoulder without comparison for shoulder pain, decreased range of motion, evaluate for degenerative joint disease. FINDINGS: There is no fracture, dislocation, or acute osseous abnormality identified. Minimal arthritic changes are seen. No radiopaque foreign bodies are seen. No soft tissue calcifications are evident. IMPRESSION: 1. No acute osseous abnormality of left shoulder. Minimal degenerative changes. If signs and symptoms persist, consider further evaluation with MRI. Electronically signed by: Chuy Abacra MD (07/06/2019 11:13 AM) [id number]
== END ==
LOC: KCIC 10:43
PROVIDERS: ATTEND Family Medicine
DX: M19.012 Primary osteoarthritis, left shoulder (principal)
CPT/HCPCS: 73030

== ENCOUNTER → 2019-07-20 | Outpatient (CLI) | payer OTHER ==
[2019-01-15 18:12] VITALS: BP 138/64
[2019-07-20 15:40] LABS: CALCIUM 9.8 mg/dL (8.5-10.1); CREATININE 1.1 mg/dL (0.6-1.0); GFR 50.5; POTASSIUM 4.5 mmol/L (3.5-5.1)
== END ==
LOC: LAB 14:58
PROVIDERS: ATTEND Family Medicine
DX: I10 Essential (primary) hypertension (principal); R25.2 Cramp and spasm
CPT/HCPCS: 36415; 80048

== ENCOUNTER → 2019-07-21 | Outpatient (CLI) | payer OTHER ==
[2019-01-15 18:12] VITALS: BP 138/64
[~2019-07-21] MED LIST changes: +IOHEXOL 300 MG/ML 100ML VIAL. IV ONE
--- NOTE | 2019-07-21 09:58 | KCIC ---
CT ABDOMEN W/CONTRAST Indication: Elevated blood pressure, localized edema, cushingoid features Technique: Postcontrast CT imaging was performed of the abdomen, multiplanar reconstruction images submitted. Pelvis was not imaged. One or more of the following individualized dose reduction techniques were utilized for this examination: 1. Automated exposure control 2. Adjustment of the mA and/or kV according to patient size 3. Use of iterative reconstruction technique. Comparison: None Findings: There is no abnormality of the limited visualized lung bases. There is no adrenal nodularity. There is cholelithiasis and probable gallbladder sludge, slightly distended gallbladder. There is diffuse hepatic steatosis. No focal abnormality is identified of the pancreas or spleen. There is visualization of pancreatic duct. There is a hypodense lesion left lobe of liver near the dome about 1.1 cm in size, density measurements suggestive of cyst at about 13 Hounsfield units. Both kidneys enhance, no hydronephrosis. Asymmetric parenchyma protruding into expected region of the right renal pelvis, which enhances to a similar degree as adjacent other renal cortical parenchyma, of the mid to inferior right kidney may be related to duplicated collecting system. There is a hypodense lesion of the mid right kidney about 0.8 cm, density measurements of a cyst about 11 Hounsfield units. Visualized bowel is not dilated. There is mild diverticulosis of the visualized colon. There is no free fluid or free air. No significantly enlarged nodes are identified, subcentimeter nodes of the radha hepatis and portacaval region, also some other very small nodes of the retroperitoneum. There is inferior lumbar facet degenerative change, contributes to degree degree of right lateral recess stenosis at L4-5. There is [id number] narrowing of the inferior right L4-5 neural foramen by facet degenerative change and likely bulge/protrusion. IMPRESSION: 1. There is no adrenal nodularity. 2. There is hepatic steatosis. 3. There is cholelithiasis and probable gallbladder sludge, slightly distended gallbladder. 4. There is asymmetric appearance of the mid to inferior right kidney with enhancement characteristics of parenchyma extending into expected renal pelvis similar to adjacent renal parenchyma, evidence of a duplex right kidney. 5. There is colonic diverticulosis. Electronically signed by: Marcelino Reardon MD (07/21/2019 9:55 AM) [id number]
== END | disposition home or self-care (01) ==
LOC: KCIC CT 08:40
PROVIDERS: ATTEND Family Medicine
DX: K80.20 Calculus of gallbladder without cholecystitis without obstruction (principal); K76.0 Fatty (change of) liver, not elsewhere classified; K57.30 Diverticulosis of large intestine without perforation or abscess without bleeding; M47.816 Spondylosis without myelopathy or radiculopathy, lumbar region; M48.061 Spinal stenosis, lumbar region without neurogenic claudication; R60.0 Localized edema; R03.0 Elevated blood-pressure reading, without diagnosis of hypertension
CPT/HCPCS: 74160; Q9967

== ENCOUNTER → 2019-07-28 | Outpatient (CLI) | payer OTHER ==
[2019-01-15 18:12] VITALS: BP 138/64
[~2019-07-28] MED LIST changes: -IOHEXOL 300 MG/ML 100ML VIAL. IV ONE
--- NOTE | 2019-07-28 08:24 | RAD ---
EXAM: CHEST PA LATERAL INDICATION: Structural abnormality of the kidney. TECHNIQUE: PA and lateral views COMPARISON: Abdomen CT with IV contrast of 07/21/2019 FINDINGS: The heart size is normal. The great vessels appear unremarkable. There is no hilar or mediastinal mass. The lungs are clear. There is no pleural effusion or pneumothorax. There are no significant osseous abnormalities. IMPRESSION: No active cardiopulmonary disease. Electronically signed by: Francoise Auguste MD (07/28/2019 8:21 AM) [id number]
--- NOTE | 2019-07-28 08:54 | RAD ---
STUDY: Complete renal sonogram INDICATION: Difficulty collecting system on the right. COMPARISON: CT abdomen/pelvis 07/21/2019 TECHNIQUE: Real-time grayscale and color Doppler sonographic evaluation of both kidneys. The bladder was also evaluated. FINDINGS: Right kidney: Measures 11.5 cm in length. The observation of two pyelocaliceal systems on the 07/21/2019 CT is less apparent on this exam. Areas of cortical thinning involving the right kidney suggestive of scarring. No cyst or mass. No hydronephrosis. Left kidney: Measures 11.9 cm in length. Normal cortical thickness and echogenicity. No hydronephrosis. Bladder: Mostly decompressed. Miscellaneous: Normal aortic caliber. Unremarkable IVC at the liver. IMPRESSION: 1. Areas of cortical thinning involving the right kidney suggestive of scarring. The two pyelocaliceal systems observed on the comparison CT are not able to be delineated on this study. 2. No hydronephrosis or suspicious cyst/mass on the right or left. Electronically signed by: EARNESTINE RAZO MD (07/28/2019 8:51 AM) [id number]
--- NOTE | 2019-07-28 13:10 | CARD ---
MR#: [id number] Date of Study: 07/28/2019 Ordering Physician: DENI PALACIOS, Referring Physician: DENI PALACIOS, Tech: Silvia Beckwith DIONICIO APPROVED REPORT EXAM: Two-dimensional and M-mode echocardiogram with Doppler and color Doppler. Other Information Quality : Good INDICATION Edema 2D DIMENSIONS RVDd2.3 (2.9-3.5cm)Left Atrium(2D)3.2 (1.6-4.0cm) IVSd1.3 (0.7-1.1cm)Aortic Root(2D)2.5 (2.0-3.7cm) LVDd3.2 (3.9-5.9cm)LVOT Diameter2.0 (1.8-2.4cm) PWd1.0 (0.7-1.1cm)LVDs2.1 (2.5-4.0cm) FS (%) 36.5 %SV28.7 ml LVEF(%)60.0 (>50%) Aortic Valve AoV Peak Wilfrid.145.3cm/sAoV VTI20.0cm AO Peak GR.8.4mmHgLVOT Peak Wilfrid.95.3cm/s AO Mean GR.5mmHgAVA (VMAX)2.16cm2 JOSEPHINE (VTI)2.90cm2 Mitral Valve MV E Aqcpjvfg05.9cm/sMV DECEL [id number] MV A Tvbgjoff80.7cm/sE/A Ratio0.8 Pulmonary Vein S1 Cwzzibop52.7cm/sD2 Flwymzma65.2cm/s LEFT VENTRICLE The left ventricle is normal size. There is mild asymmetric septal hypertrophy. The left ventricular systolic function is normal and the ejection fraction is within normal range. The Ejection Fraction i s 55-60%. There is normal LV segmental wall motion. Transmitral Doppler flow pattern is Grade I-abnor mal relaxation pattern. RIGHT VENTRICLE The right ventricle is normal size. The right ventricular systolic function is normal. ATRIA The left atrium size is normal. The right atrium size is normal. The interatrial septum is intact wit h no evidence for an atrial septal defect or patent foramen ovale as noted on 2-D or Doppler imaging. AORTIC VALVE The aortic valve is not well visualized but appears to be functioning normally by Doppler interrogati on. Doppler and Color Flow revealed no significant aortic regurgitation. There is no significant aort ic valvular stenosis. MITRAL VALVE The mitral valve is calcified but opens well. There is no evidence of mitral valve prolapse. There is no mitral valve stenosis. Doppler and Color Flow revealed no mitral valve regurgitation noted. TRICUSPID VALVE The tricuspid valve is normal in structure and function. Doppler and Color Flow revealed no tricuspid valve regurgitation noted. There is no tricuspid valve stenosis. PULMONIC VALVE The pulmonic valve is not well visualized. Doppler and Color Flow revealed no pulmonic valvular regur gitation. There is no pulmonic valvular stenosis. GREAT VESSELS The aortic root is normal in size. The ascending aorta is normal in size. The IVC is normal in size a nd collapses >50% with inspiration. PERICARDIAL EFFUSION There is no evidence of significant pericardial effusion. Critical Notification Critical Value: No <Conclusion> The left ventricular systolic function is normal and the ejection fraction is within normal range. Th e Ejection Fraction is 55-60%. There is normal LV segmental wall motion. Signed by : Eros Wick, Electronically Approved : 07/28/2019 13:09:57
== END | disposition home or self-care (01) ==
LOC: RAD 07:53
PROVIDERS: ATTEND Family Medicine
DX: I05.9 Rheumatic mitral valve disease, unspecified (principal); R60.0 Localized edema
CPT/HCPCS: 71046; 76770; 93306

== ENCOUNTER → 2019-08-04 | Outpatient (CLI) | payer OTHER ==
[2019-01-15 18:12] VITALS: BP 138/64
[~2019-08-04] MED LIST changes: +FURO20TA3 PO; +HYDR-3164 PO
== END | disposition home or self-care (01) ==
LOC: SURGPAT 14:01
PROVIDERS: ATTEND Surgery
DX: Z03.818 Encounter for observation for suspected exposure to other biological agents ruled out (principal); K80.20 Calculus of gallbladder without cholecystitis without obstruction
CPT/HCPCS: 36415; 87635

== ENCOUNTER 2019-08-08 07:30 | Day surgery (SDC) | payer OTHER ==
[~2019-08-08] VITALS: Ht 154.9 cm; Wt 101.0 kg
[~2019-08-08 07:30] MED LIST changes: -HYDR-3164 PO; +HYDROmorphone 2 MG/ML VIAL IV PRN; +IV RINGERS,LACTATED 1000ML 1,000 ML IV SCH; +LIDOCAINE 1% PF 2 ML VIAL. ID PRN; +MORPHINE SULFATE 2 MG/ML VIAL. IV PRN; +ONDANSETRON PF 4 MG/2 ML VIAL. IV PRN; +PROCHLORPERAZINE 10 MG/2 ML VIAL. IV PRN; +fentaNYL PF VIAL 100 MCG/2 ML VIAL IV PRN
[2019-08-08] MEDS ORDERED: SURGICEL HEMOSTAT 4X8 EACH. ONE (08:17)
[2019-08-08] MEDS ORDERED: BUPIVACAINE MPF 0.5% 30 ML VIAL. ONE (08:17)
[2019-08-08] MEDS ORDERED: IOHEXOL 300 MG/ML 50 ML VIAL. ONE (08:17)
[2019-08-08] MEDS ORDERED: ROCURONIUM 50 MG/5 ML VIAL. ONE (08:42)
[2019-08-08] MEDS ORDERED: fentaNYL PF VIAL 100 MCG/2 ML VIAL ONE (08:43)
[2019-08-08] MEDS ORDERED: MIDAZOLAM HCL/PF 2 MG/2 ML VIAL. ONE (08:43)
[2019-08-08] MEDS ORDERED: PROPOFOL 20 ML IV ONE (08:44)
[2019-08-08] MEDS ORDERED: KETOROLAC 30 MG/ML VIAL. ONE (08:44)
[2019-08-08] MEDS ORDERED: DEXAMETHASONE SOD PHOS 4 MG/ML VIAL ONE ×2 (08:44→09:03)
[2019-08-08] MEDS ORDERED: ONDANSETRON PF 4 MG/2 ML VIAL. ONE (08:44)
[2019-08-08] MEDS ORDERED: SEVOFLURANE 61 TO 120 MINUTES. IH ONE (08:44)
[2019-08-08] MEDS ORDERED: LIDOCAINE 2% PF 5 ML VIAL. ONE (08:44)
[2019-08-08] MEDS ORDERED: SUGAMMADEX SODIUM 200 MG/2 ML VIAL. IVP ONE (09:45)
--- NOTE | 2019-08-08 10:09 | RAD ---
Interoperative Cholangiogram: Technique: Contrast is introduced into the cystic duct during the performance of a laparoscopic cholecystectomy and spot views were obtained on a portable C-arm for an intraoperative cholangiogram. Total Fluoro Time: 7.2s. Findings: The majority of the biliary tree is visualized and appears normal. No filling defects are seen. Contrast is seen in the duodenum. Impression: No evidence of a retained stone. Electronically signed by: Yunior Ahmadi III, MD (08/08/2019 10:06 AM) [id number]
--- NOTE | 2019-08-08 10:27 | PDOC4 ---
Operative Note Operative Note Operative Note: Preoperative Diagnosis: Symptomatic cholelithiasis Postoperative Diagnosis: Same Procedure: Laparoscopic cholecystectomy with intraoperative cholangiogram Surgeons: Miles Seismograph Helper: ARMINDA Yao Anesthesia: Gen. Estimated Blood Loss: 10 mL Specimen: Gallbladder to pathology Drains: None Complications: None Indications: The patient is a 59-year-old female who is been experiencing recurrent upper abdominal pain consistent with biliary colic. Surgical treatment was offered by means of a laparoscopic cholecystectomy. The risks of surgery were discussed which include bleeding, infection, bile duct injury, bile leak, pain, the potential for additional surgeries or procedures. The patient understands and would like to proceed. Description: The patient was taken to the operating room and laid supine on the operating table. General anesthesia was performed. The abdomen was prepped with ChloraPrep and draped in a standard surgical fashion. A small supraumbilical incision was made with a scalpel. The Veress needle was then inserted and a pneumoperitoneum was then created. A 5 mm trocar was then inserted and the laparoscope was introduced. In the upper midabdomen a 5 mm trocar was inserted and in the right upper quadrant two 2.3 mm mini lap graspers were inserted. The gallbladder was retracted cephalad. The cystic duct was dissected free from surrounding tissues. One clip was placed on the duct near the gallbladder junction. An opening was made in the duct and a cholangiocatheter placed within and secured with a clip. Using contrast dye and fluoroscopy an intraoperative cholangiogram was performed that appeared unremarkable. The clip and catheter were then withdrawn. Three clips were placed on the cystic duct and it was divided. The cystic artery was then identified, dissected free, doubly clipped and divided as well. The gallbladder was then mobilized away from the liver with cautery. The umbilical 5 millimeter trocar was exchanged for an 11 millimeter trocar. The gallbladder was then placed in an endoscopic bag and extracted at the umbilical trocar site. The fascia there was closed with an 0 Vicryl suture. All blood and irrigation fluid was suctioned and hemostasis was good. The remaining ports were removed and the pneumoperitoneum was relieved. The skin incisions were injected with half percent Marcaine with epinephrine, and all were closed using 4-0 Monocryl suture. Steri-Strips and dressings were then applied. The patient tolerated the procedure well and was sent to the recovery room in stable condition. At the end of the case all counts were correct. GUMARO SERRANO MD August 08, 2019 10:27
--- NOTE | 2019-08-08 10:30 | DISCH ---
DISCHARGE INSTRUCTIONS Condition on Discharge Condition on Discharge: Stable Activity After Discharge Activity Instructions for Disc: Other, see below (no lifting over 20 lbs X 2 weeks) Driving Instructions after Dis: Other, see below (no driving while taking pain meds) Diet after Discharge Diet after Discharge: Regular Wound Incision Care Wound/Incision Care: Other, see below (may remove bandaids and shower tomorrow) Follow-Up Follow up with: Dr Serrano in 2 weeks in office, call for appt [phone] GUMARO SERRANO MD August 08, 2019 10:30
[2019-08-08] MEDS ORDERED: HYDR-3164 PO (10:56)
[2019-08-08] MEDS ORDERED: HYDROcodone/APAP 5/325MG 1 TAB TABLET PO ONE (11:00)
[2019-08-08 11:15] VITALS: BP 141/67
--- NOTE | 2019-08-10 08:06 | PATHOLOGY ---
[facility] Accession Number: [id number] . 01 Material submitted: . gallbladder - GALLBLADDER AND CONTENTS . 01 Clinical history: . Symptomatic cholelithiasis . 02 Diagnosis: Gallbladder, cholecystectomy: - Cholelithiasis. - Chronic cholecystitis. ([facility] 08/09/2019) [facility] 08/09/2019 1033 Local . 02 Comment: There is no evidence of malignancy. ([facility] 08/09/2019) . . 02 Electronically signed: . Carlos Banks MD, Pathologist NPI- [id number] . 01 Gross description: . The specimen is received in formalin labeled "Jerardo, Radhika, gallbladder and contents" and consists of a previously opened pink-engel gallbladder measuring 7.7 x 2.6 x 1.3 cm. The margin is inked black. Opening reveals a lumen filled with multiple dark green multifaceted calculi measuring up to 1.5 cm. The mucosa is green pink granular to eroded with an average wall thickness of 0.1 cm. No masses are identified. Heading Saw Operator sections are submitted in A1. (SD; 08/08/2019) SYU/SYU 08/08/2019 1655 Local . 02 Pathologist provided ICD-10: K80.10 . 02 CPT . 631698 Specimen Comment: A courtesy copy of this report has been sent to [phone], [phone] Specimen Comment: [id number] Specimen Comment: Report sent to / DR PALACIOS Performed at: 01 [facility] [address], [place], [place] [id number] MD Reed Parham MD Phone: [phone] Performed at: [facility] [address], [place] [id number] MD Carlos Banks MD Phone: [phone]
== END 2019-08-08 11:56 | disposition home or self-care (01) ==
LOC: SURG 07:30
PROVIDERS: ATTEND Surgery
DX: K80.20 Calculus of gallbladder without cholecystitis without obstruction (principal); I10 Essential (primary) hypertension; E03.9 Hypothyroidism, unspecified; E66.01 Morbid (severe) obesity due to excess calories; Z68.41 Body mass index [BMI] 40.0-44.9, adult; Z96.642 Presence of left artificial hip joint
CPT/HCPCS: 47563; 74300; A7015; J1100; J1885; J1956; J2250; J2405; J2704; J3490; J7030; J7120; Q9967; 88304; J3010

== ENCOUNTER → 2019-09-26 | Outpatient (CLI) | payer OTHER ==
[~2019-09-26] MED LIST changes: +HYDR-3164 PO; -HYDROmorphone 2 MG/ML VIAL IV PRN; -IV RINGERS,LACTATED 1000ML 1,000 ML IV SCH; +LIDO700A21 TP; -LIDOCAINE 1% PF 2 ML VIAL. ID PRN; -MORPHINE SULFATE 2 MG/ML VIAL. IV PRN; +MULT-735 PO; +NAPR220C4 PO; -ONDANSETRON PF 4 MG/2 ML VIAL. IV PRN; -PROCHLORPERAZINE 10 MG/2 ML VIAL. IV PRN; -fentaNYL PF VIAL 100 MCG/2 ML VIAL IV PRN
== END | disposition home or self-care (01) ==
LOC: LAB 13:12
PROVIDERS: ATTEND Internal Medicine Cardiovascular Disease
DX: Z11.59 Encounter for screening for other viral diseases (principal); R94.39 Abnormal result of other cardiovascular function study
CPT/HCPCS: U0003-CS

== ENCOUNTER 2019-09-29 06:58 | Outpatient (CLI) | payer OTHER ==
[~2019-09-29] VITALS: Ht 157.5 cm; Wt 95.3 kg
[2019-09-29] VITALS (10 sets, daily range): BP systolic 101–156; BP diastolic 62–79
[~2019-09-29 06:58] MED LIST changes: -LIDO700A21 TP; -MULT-735 PO; -NAPR220C4 PO
[2019-09-29 07:27] LABS: HEMATOCRIT 38.8 % (36.0-47.0); HEMOGLOBIN 13.4 g/dL (12.0-15.5); RED BLOOD COUNT 4.44 x10^6/uL (3.50-5.40); RED CELL DISTRIBUTION WIDTH 14.7 % (11.5-14.5); WHITE BLOOD COUNT 8.1 x10^3/uL (4.0-11.0)
[2019-09-29] MEDS ORDERED: TRAM50TA PO (07:38)
[2019-09-29] MEDS ORDERED: CYCL10TA2 PO (07:38)
[2019-09-29] MEDS ORDERED: LIDO700A21 TP (07:38)
[2019-09-29] MEDS ORDERED: MULT-735 PO (07:38)
[2019-09-29] MEDS ORDERED: NAPR220C4 PO (07:38)
[2019-09-29 07:39] LABS: CALCIUM 8.8 mg/dL (8.5-10.1); CREATININE 1.2 mg/dL (0.6-1.0); GFR 45.7; POTASSIUM 3.8 mmol/L (3.5-5.1)
[2019-09-29] MEDS ORDERED: HEPARIN for ARTERIAL LINE 1,500 ML ONE (07:40)
[2019-09-29] MEDS ORDERED: IODIXANOL 320 MG/ML 100 ML VIAL. ONE (07:40)
[2019-09-29] MEDS ORDERED: LIDOCAINE 1% PF 2 ML VIAL. ONE (07:40)
[2019-09-29 07:44] LABS: PROTHROMBIN TIME PATIENT 11.9 SEC (11.7-14.0)
[2019-09-29] MEDS ORDERED: fentaNYL PF VIAL 100 MCG/2 ML VIAL ONE (08:41)
[2019-09-29] MEDS ORDERED: MIDAZOLAM HCL/PF 2 MG/2 ML VIAL. ONE (08:41)
[2019-09-29] MEDS ORDERED: VERAPAMIL 5 MG/2 ML VIAL. ONE (08:42)
[2019-09-29] MEDS ORDERED: NITROGLYCERIN 200 MCG/2 ML SYRINGE FOR CATH/VASC LAB. ONE (08:42)
[2019-09-29] MEDS ORDERED: HEPARIN for IV BOLUS 10,000 UNIT/10 ML VIAL. ONE (08:42)
[2019-09-29] MEDS ORDERED: MIDAZOLAM HCL/PF 2 MG/2 ML VIAL. IV ONE (09:15)
[2019-09-29] MEDS ORDERED: LIDOCAINE 1% PF 2 ML VIAL. INJ ONE (09:15)
[2019-09-29] MEDS ORDERED: VERAPAMIL 5 MG/2 ML VIAL. IART ONE (09:15)
[2019-09-29] MEDS ORDERED: IODIXANOL 320 MG/ML 100 ML VIAL. IART ONE (09:15)
[2019-09-29] MEDS ORDERED: IV NORMAL SALINE 500ML BAG 500 ML IV ONE (09:15)
[2019-09-29] MEDS ORDERED: NITROGLYCERIN 200 MCG/2 ML SYRINGE FOR CATH/VASC LAB. IART ONE (09:15)
[2019-09-29] MEDS ORDERED: HEPARIN for IV BOLUS 10,000 UNIT/10 ML VIAL. IART ONE (09:15)
[2019-09-29] MEDS ORDERED: fentaNYL PF VIAL 100 MCG/2 ML VIAL IV ONE (09:15)
--- NOTE | 2019-09-29 10:05 | HP ---
ADMIT DATE: 09/29/2019 CARDIOLOGY HISTORY AND PHYSICAL REASON FOR ADMISSION: Planned cardiac catheterization due to abnormal stress test. HISTORY OF PRESENT ILLNESS: The patient is a pleasant 59-year-old woman who was seen in the office in 07/2019 with cushingoid symptoms. She developed some edema in her upper back, and extensive neurosurgical, endocrinologic, and rheumatologic evaluation did not reveal any obvious causes. Due to persistent dyspnea on exertion and tachycardia, she was referred to our office. She initially denied any angina, but did have exertional dyspnea. She has been compliant with her medical therapy for hypertension, hypothyroidism, and mild diabetes. After discussion in the office, she underwent a cardiac stress test. The stress test revealed significant abnormalities including suggestion of multivessel disease. The risks and benefits of further evaluation were discussed with the patient in the setting of her multiple risk factors and she wished to proceed with cardiac catheterization. PAST MEDICAL HISTORY: 1. Hypothyroidism. 2. Hypertension. 3. Type 2 diabetes. 4. Diastolic heart failure. 5. Obesity. SOCIAL HISTORY: The patient denies any alcohol, tobacco, or illicit drug use. She works as a nurse. REVIEW OF SYSTEMS: Negative for 10 out of 14 systems reviewed, unless otherwise mentioned above in HPI. FAMILY HISTORY: Notable for hypertension and diabetes. ALLERGIES: SULFA, PENICILLIN, GABAPENTIN, CELEBREX, CLINDAMYCIN, AND THIOMERSAL. REVIEW OF SYSTEMS: Negative for 10/14 systems reviewed, unless otherwise mentioned above in HPI. PHYSICAL EXAMINATION: VITAL SIGNS: Afebrile, blood pressure 121/68, heart rate 100, respiratory rate 14, and pulse ox 95% on 2 liters nasal cannula. GENERAL: She is alert and oriented, in no acute distress. HEAD AND NECK: Unremarkable. CARDIAC: Regular rate and rhythm without murmurs, rubs, or gallops. LUNGS: Clear to auscultation bilaterally. ABDOMEN: Soft, nontender, and nondistended. EXTREMITIES: No clubbing, cyanosis, or edema. NEUROLOGIC: No focal deficits. MUSCULOSKELETAL: No trauma. DIAGNOSTIC STUDIES: As noted above. A Lexiscan myocardial perfusion study was notable for a possible multivessel coronary artery disease. IMPRESSION: A 59-year-old woman with exertional dyspnea and abnormal stress test, presenting for cardiac catheterization. PLAN: Risks and benefits of cardiac catheterization were discussed with the patient and she will undergo an outpatient coronary angiogram and consider PCI as necessary. BREA MARIEE MD DR: REJI/dick JOB#: [id number] / [id number]
--- NOTE | 2019-09-29 12:14 | NUR ---
Discharge Note: LISA LUA Discharge instructions and discharge home medications reviewed with Patient and a copy given. All questions have been answered and understanding verbalized. The following instructions and handouts were given: radial site care and adult moderate sedation Discontinued lines and drains: Peripheral IV intact. Patient discharged to Home or Self Care withSpousevia Wheelchair
--- NOTE | 2019-09-29 12:47 | CARD ---
MR#: [id number] Date of Study: 09/29/2019 Ordering Physician: BREA WICK, Referring Physician: BREA WICK, Tech: RT Jordan (R) JARETT APPROVED REPORT Technologist: Belkis Headley RT (R) JARETT Nurse: Gisela Ramirez R.N. Procedure(s) performed: fl time: 2.3 mins dose: 51 gycm2 contrast: 44 ml moderate sedation: 26 mins C, Coronary angiography HISTORY : The patient is a 59 year-old female with a history of . INDICATION The indication(s) include : positive stress test, unstable angina , dyspnea. CS Clinical Frailty Scale [facility] Clinical Frailty Scale: Mildly Frail Heart Failure Heart Failure: No PROCEDURE NARRATIVE INFORMED CONSENT: After explaining the risks and benefits of the procedure and alternatives, informed consent was obtained. The patient was brought electively to the cardiac catheterization lab. A timeout was performed confi rming the patient's name, date of , procedure, and site of procedure. All necessary personnel w ere wearing the appropriate protective equipment and radiation monitor devices. (See nursing notes for medications administered). ACCESS: The right wrist was sterilely prepped and draped in the usual fashion. The right wrist was infiltrat ed with 1 mL of 2% lidocaine for subcutaneous anesthesia. A 6 Swedish Terumo glide sheath was inserte d into the right radial artery without difficulty. CORONARY ANGIOGRAPHY: Right and left coronary angiography was performed using a 6Fr TIG 4.0 catheter. Left ventricular en d diastolic pressure was obtained with a pigtail catheter and pullback was performed after left ventr iculography. All catheter exchanges and advancements were performed over a guidewire. CLOSURE: At case completion the right radial sheath was removed and a Terumo radial band was applied with 13 m l of air. COMPLICATIONS: The patient tolerated the procedure well and there were no immediate complications. FINDINGS: HEMODYNAMICS: LVEDP3 mm Hg No gradient on LV to aortic pullback. AO: 128/78 CORONARY ANGIOGRAPHY: LM is a large caliber vessel with normal angiographic appearance. LAD is a moderate caliber vessel with normal angiographic appearance. The mid to distal LAD rapidly t apers to a small caliber. LCx is a moderate caliber non-dominant vessel with normal angiographic appearance. OM1 is a moderate caliber vessel with normal angiographic appearance. RCA is a large caliber dominant vessel with normal angiographic appearance. RPDA and RPL are large caliber vessels with normal angiographic appearance. PDA provides dominant cir culation to the apex. Conclusion 1. Normal left sided filling pressures. 2. Normal angiographic appearance of the coronary arteries. Recommendations Aggressive Medical Therapy Signed by : Brea Wick, Electronically Approved : 09/29/2019 12:47:14
== END 2019-09-29 12:05 | disposition home or self-care (01) ==
LOC: CCL 06:58
PROVIDERS: ATTEND Internal Medicine Cardiovascular Disease
DX: R94.39 Abnormal result of other cardiovascular function study (principal); E03.9 Hypothyroidism, unspecified; I11.0 Hypertensive heart disease with heart failure; I50.30 Unspecified diastolic (congestive) heart failure; E66.9 Obesity, unspecified; Z68.38 Body mass index [BMI] 38.0-38.9, adult; Z88.2 Allergy status to sulfonamides; Z88.0 Allergy status to penicillin; Z88.8 Allergy status to other drugs, medicaments and biological substances; Z79.899 Other long term (current) drug therapy
CPT/HCPCS: 36415; 80048; 85027; 85610; 93458; C1769; C1892; J1644; J2250; J3010; J3490; J7040; Q9967; 99152; 99153

== ENCOUNTER → 2019-11-08 | Outpatient (CLI) | payer OTHER ==
[2019-09-29 11:45] VITALS: BP 133/71
[~2019-11-08] MED LIST changes: +LIDO700A21 TP; +MULT-735 PO; +NAPR220C4 PO
[2019-11-08 08:48] LABS: FREE T4 1.15 ng/dL (0.76-1.46); THYROID STIM HORMONE (TSH) 0.952 uIU/mL (0.358-3.74)
== END | disposition home or self-care (01) ==
LOC: LAB 08:01
PROVIDERS: ATTEND Internal Medicine
DX: E11.9 Type 2 diabetes mellitus without complications (principal); E03.9 Hypothyroidism, unspecified; E66.01 Morbid (severe) obesity due to excess calories; R00.2 Palpitations
CPT/HCPCS: 82088; 83036; 84439; 84443

== ENCOUNTER → 2020-11-28 | Outpatient (CLI) | payer OTHER ==
[2019-09-29 11:45] VITALS: BP 133/71
[~2020-11-28] MED LIST changes: -ACYC800T PO; +ACYC800T88 PO; +LISI10TA16 PO; -LISI10TA2 PO
--- NOTE | 2020-11-28 14:54 | KCIC ---
Bilateral digital screening mammograms: Reason for examination: Routine screening. Comparison is made to previous study dated 07/02/2009. Interpretation was made with the benefit of CAD. The skin and nipples show no abnormalities. No abnormal axillary lymph nodes are seen. The breast par enchyma shows scattered fibroglandular density. (Breast density: Category B.) There are small intrama mmary lymph nodes again seen bilaterally which are stable. There are no new dominant masses, suspicio us calcifications or architectural distortions. Some benign calcifications are present. Impression: No evidence of malignancy. Recommend routine screening. BI-RADS category 2: Benign "Our facility is accredited by the [employer] Mammography Program." This patient's information has been entered into a reminder system for the patient to be notified wit h the results of her examination and a target date for the next mammogram. Electronically signed by: Julissa Heard MD (11/28/2020 2:51 PM) [id number]
== END ==
LOC: KCIC MAMMO 11:11
PROVIDERS: ATTEND Family Medicine
DX: Z12.31 Encounter for screening mammogram for malignant neoplasm of breast (principal)
CPT/HCPCS: 77067

== ENCOUNTER → 2021-03-26 | Outpatient (CLI) | payer OTHER ==
[2019-09-29 11:45] VITALS: BP 133/71
[~2021-03-26] MED LIST changes: +CYCL10TA19 PO; -CYCL10TA2 PO
[2021-03-26 08:54] LABS: BASO # 0.1 x10^3/uL (0.0-0.2); BASO % 1 % (0-3); EOS # 0.3 x10^3/uL (0.0-0.7); EOS % 4 % (0-3); HEMOGLOBIN 13.5 g/dL (12.0-15.5); LYMPH # 2.8 x10^3/uL (1.0-4.8); LYMPH % 35 % (24-48); MEAN CORPUSCULAR HEMOGLOBIN 30 pg (25-35); MEAN CORPUSCULAR HGB CONC 34 g/dL (31-37); MEAN CORPUSCULAR VOLUME 88 fL (79-100); MONO # 0.5 x10^3/uL (0.0-1.1); MONO % 7 % (0-9); NEUT # 4.3 x10^3/uL (1.8-7.7); NEUT % 54 % (31-73); PLATELET COUNT 251 x10^3/uL (140-400); RED BLOOD COUNT 4.54 x10^6/uL (3.50-5.40); RED CELL DISTRIBUTION WIDTH 13.9 % (11.5-14.5)
[2021-03-26 08:55] LABS: ALBUMIN 3.9 g/dL (3.4-5.0); ALBUMIN/GLOBULIN RATIO 1.1 (1.0-1.7); CALCIUM 9.5 mg/dL (8.5-10.1); CREATININE 0.9 mg/dL (0.6-1.0); GFR 63.4; POTASSIUM 4.6 mmol/L (3.5-5.1); TOTAL BILIRUBIN 0.3 mg/dL (0.2-1.0); TOTAL PROTEIN 7.5 g/dL (6.4-8.2)
[2021-03-26 08:56] LABS: CHOLESTEROL/HDL RATIO 4.1
[2021-03-26 09:06] LABS: FREE T4 1.21 ng/dL (0.76-1.46); THYROID STIM HORMONE (TSH) 2.328 uIU/mL (0.358-3.74)
[2021-03-27 02:11] LABS: HEMOGLOBIN A1C 7.4 % (4.8-5.6)
== END ==
LOC: LAB 07:58
PROVIDERS: ATTEND Family Medicine
DX: E11.9 Type 2 diabetes mellitus without complications (principal); E78.2 Mixed hyperlipidemia; E03.9 Hypothyroidism, unspecified
CPT/HCPCS: 36415; 80053; 80061; 83036; 84439; 84443; 85025